=== PATIENT | female | born 1980 | race Caucasian/White ===

== ENCOUNTER 2021-06-11 09:30 | Emergency (ER) | payer OTHER ==
[~2021-06-11] VITALS: Ht 165.1 cm; Wt 150.0 kg
[2021-06-11] MEDS ORDERED: MORPHINE SULFATE 4 MG/ML CPJ (NOT FOR IM USE) IV STA (14:52)
[2021-06-11] MEDS ORDERED: MORPHINE SULFATE 2 MG/ML CPJ (NOT FOR IM USE) IV NR (15:00)
[2021-06-11 15:03] LABS: COLOR URINE DK YELLOW (YELLOW); KETONES URINE 1+ (NEGATIVE); LEUKOCYTE ESTERASE URINE 1+ (NEGATIVE); NITRITE URINE NEGATIVE (NEGATIVE); OCCULT BLOOD URINE TRACE (NEGATIVE); PH URINE 5.5 (4.5-8.0); PROTEIN URINE NEGATIVE (NEGATIVE); SPECIFIC GRAVITY URINE 1.022 (1.005-1.030); UROBILINOGEN URINE 0.2 E.U./dL (0.2-1.0)
[2021-06-11 15:04] LABS: CLARITY URINE SL HAZY (CLEAR)
[2021-06-11 15:20] LABS: BASOPHILS % 0.4 % (0.0-2.0); EOSINOPHILS % 0.8 % (0.0-5.0); HEMATOCRIT. 41.6 % (36.0-48.0); HEMOGLOBIN. 14.2 g/dL (12.0-16.0); LYMPHOCYTES % 21.1 % (20.0-50.0); MEAN CORPUSCULAR HEMOGLOBIN 31.2 pg (28.0-32.0); MEAN CORPUSCULAR VOLUME 91.8 fL (81.0-99.0); MEAN PLATELET VOLUME 9.3 fl (7.4-10.4); MONOCYTES % 6.8 % (2.0-8.0); NEUTROPHILS % 70.9 % (40.0-76.0); PLATELET 306 x1000/uL (130-400); RED BLOOD CELL COUNT 4.53 mill/uL (4.2-5.4); RED CELL DISTRIBUTION WIDTH 13.6 % (11.6-14.6)
[2021-06-11 15:31] LABS: PROTHROMBIN TIME 11.1 sec (9.6-11.0)
[2021-06-11 15:43] LABS: CHLORIDE 106 mEq/L (98-107)
[2021-06-11] MEDS ORDERED: LEVOFLOXACIN 750MG PREMIX 150 ML IV ONE (17:45)
[2021-06-11] MEDS ORDERED: METRONIDAZOLE 500 MG PREMIX 100 ML IV ONE (17:45)
[2021-06-11] MEDS ORDERED: CIPR-263 MT (21:07)
[2021-06-11] MEDS ORDERED: METR-167 MT (21:07)
[2021-06-11 21:23] VITALS: BP 130/66
== END 2021-06-11 21:24 | disposition home or self-care (01) ==
LOC: ER 09:30
DX: K76.0 Fatty (change of) liver, not elsewhere classified (principal); E27.8 Other specified disorders of adrenal gland
CPT/HCPCS: 36415; 74176; 80053; 81003; 81025; 83690; 85025; 85610; 96365; 96375; 99284; J1956; J2270; J3490